=== PATIENT | male | born 1930 | race Caucasian/White ===

== ENCOUNTER 2017-08-04 23:26 | Emergency (ER) | payer MEDICARE ==
[2017-08-05 01:56] LABS: ADD MAN DIFF? NO
[2017-08-05 01:58] LABS: BASOPHILS % 0.8 % (0.0-2.0); EOSINOPHILS # 0.4 10^3/ul (0.0-0.5); HEMOGLOBIN 11.9 g/dl (14.0-18.0); LYMPHOCYTES # 1.6 10^3/ul (0.8-2.9); LYMPHOCYTES % 29.8 % (15.0-51.0); MEAN CORPUSCULAR VOLUME 97.1 fl (82.0-101.0); MEAN PLATELET VOLUME 10.7 fl (7.4-10.4); MONOCYTE # 0.4 10^3/ul (0.3-0.9); MONOCYTES % 8.3 % (0.0-11.0); NEUTROPHIL # 2.9 10^3/ul (1.6-7.5); NEUTROPHILS % 53.9 % (39.0-77.0); PLATELET COUNT 141 10^3/UL (140-415); RED CELL DISTRIBUTION WIDTH 12.2 % (11.5-14.5)
[2017-08-05 01:58] LABS: WHITE BLOOD COUNT 5.3 10^3/ul (4.8-10.8)
[2017-08-05 02:30] LABS: LACTIC ACID 1.3 mmol/L (0.5-2.0)
[2017-08-05 02:30] LABS: ALANINE AMINOTRANSFERASE 16 IU/L (13-69); ALBUMIN 3.5 g/dl (3.3-4.9); ALBUMIN/GLOBULIN RATIO 1.02; ALKALINE PHOSPHATASE 88 IU/L (42-121); ANION GAP 13 (8-16); ASPARTATE AMINO TRANSFERASE 21 IU/L (15-46); BILIRUBIN,INDIRECT 0.2 mg/dl (0-1.1); BILIRUBIN,TOTAL 0.2 mg/dl (0.2-1.3); BLOOD UREA NITROGEN 20 mg/dl (7-20); CALCIUM 8.7 mg/dl (8.4-10.2); CARBON DIOXIDE 30 mmol/L (21-31); CHLORIDE 106 mmol/L (97-110); CREATINE KINASE 51 IU/L (23-200); CREATININE 1.01 mg/dl (0.61-1.24); GLUCOSE 106 mg/dl (70-220); POTASSIUM 4.2 mmol/L (3.5-5.1); SODIUM 145 mmol/L (135-144); TOTAL PROTEIN 6.9 g/dl (6.1-8.1)
[2017-08-05 02:32] LABS: INR 2.21; PROTIME 25.1 Sec (11.9-14.9)
[2017-08-05 03:34] LABS: ACETAMINOPHEN < 10.0 ug/ml (10.0-30.0); ETHANOL < 10.0 mg/dl; SALICYLATE < 1.0 mg/dl (5.0-30.0); TROPONIN-I < 0.012 ng/ml (0.00-0.12)
[2017-08-05 03:53] LABS: URINE BLOOD (Dip) POC Trace-intact (NEGATIVE); URINE GLUCOSE (Dip) POC Negative (NEGATIVE); URINE KETONES (Dip) POC Negative (NEGATIVE); URINE LEUKOCYTE EST (Dip) POC Negative (NEGATIVE); URINE NITRITE (Dip) POC Negative (NEGATIVE); URINE TOTAL PROTEIN POC Negative (NEGATIVE)
== END 2017-08-05 05:01 | disposition home or self-care (01) ==
LOC: E/R 23:26
DX: F03.90 Unspecified dementia, unspecified severity, without behavioral disturbance, psychotic disturbance, mood disturbance, and anxiety (principal); R40.2242 Coma scale, best verbal response, confused conversation, at arrival to emergency department; D64.9 Anemia, unspecified; I10 Essential (primary) hypertension; R40.2142 Coma scale, eyes open, spontaneous, at arrival to emergency department; R40.2362 Coma scale, best motor response, obeys commands, at arrival to emergency department; R40.4 Transient alteration of awareness; R07.9 Chest pain, unspecified
CPT/HCPCS: 70450; 70486; 71045; 80053; 80306; 81003; 82550; 83605; 84443; 84484; 85025; 85610; 85730; 87040; 93005; 99285-25

== ENCOUNTER 2017-08-08 20:09 | Inpatient (IN) | payer MEDICARE, MEDICAID ==
[2017-08-08] MEDS: SODIUM CHLORIDE 0.9% 1L BAG IV* ×2 (21:20→22:42)
[2017-08-08 21:28] LABS: ADD MAN DIFF? NO
[2017-08-08 21:33] LABS: WHITE BLOOD COUNT 4.4 10^3/ul (4.8-10.8)
[2017-08-08 21:33] LABS: BASOPHILS % 0.9 % (0.0-2.0); EOSINOPHILS # 0.5 10^3/ul (0.0-0.5); EOSINOPHILS % 10.4 % (0.0-7.0); HEMATOCRIT 34.9 % (42.0-52.0); HEMOGLOBIN 12.1 g/dl (14.0-18.0); LYMPHOCYTES # 1.7 10^3/ul (0.8-2.9); LYMPHOCYTES % 37.3 % (15.0-51.0); MEAN CORPUSCULAR HEMOGLOBIN 33.8 pg (29.0-33.0); MEAN CORPUSCULAR HGB CONC 34.7 g/dl (32.0-37.0); MEAN CORPUSCULAR VOLUME 97.5 fl (82.0-101.0); MEAN PLATELET VOLUME 11.1 fl (7.4-10.4); MONOCYTE # 0.4 10^3/ul (0.3-0.9); MONOCYTES % 8.4 % (0.0-11.0); NEUTROPHIL # 1.9 10^3/ul (1.6-7.5); NEUTROPHILS % 42.8 % (39.0-77.0); PLATELET COUNT 152 10^3/UL (140-415); RED BLOOD COUNT 3.58 10^6/ul (4.70-6.10); RED CELL DISTRIBUTION WIDTH 12.3 % (11.5-14.5)
[2017-08-08 21:54] LABS: ALANINE AMINOTRANSFERASE 20 IU/L (13-69); ALBUMIN 3.2 g/dl (3.3-4.9); ALBUMIN/GLOBULIN RATIO 0.86; ALKALINE PHOSPHATASE 77 IU/L (42-121); AMYLASE 81 U/L (11-123); ANION GAP 15 (8-16); ASPARTATE AMINO TRANSFERASE 18 IU/L (15-46); BILIRUBIN,INDIRECT 0.2 mg/dl (0-1.1); BILIRUBIN,TOTAL 0.2 mg/dl (0.2-1.3); BLOOD UREA NITROGEN 22 mg/dl (7-20); CALCIUM 8.7 mg/dl (8.4-10.2); CARBON DIOXIDE 23 mmol/L (21-31); CHLORIDE 111 mmol/L (97-110); CREATININE 0.96 mg/dl (0.61-1.24); GLUCOSE 140 mg/dl (70-220); LIPASE 39 U/L (23-300); POTASSIUM 4.3 mmol/L (3.5-5.1); SODIUM 145 mmol/L (135-144); TOTAL PROTEIN 6.9 g/dl (6.1-8.1)
[2017-08-08 21:59] LABS: PROTIME 32.9 Sec (11.9-14.9); PT RATIO 2.6
[2017-08-08 22:00] LABS: PARTIAL THROMBOPLASTIN TIME 49.3 Sec (25.0-35.0)
[2017-08-08 22:04] LABS: B-TYPE NATRIURETIC PEPTIDE 396 PG/ML (0-450)
[2017-08-08 22:10] LABS: TROPONIN-I < 0.012 ng/ml (0.00-0.12)
[2017-08-08] MEDS: CEFEPIME 2GM/50 ML (PMX) 50 ML IVPB (22:42)
[2017-08-08] MEDS: LORAZEPAM 2 MG INJ IV (22:42)
[2017-08-08] MEDS ORDERED: ONDANSETRON 4 MG INJ IV (23:00)
[2017-08-08] MEDS ORDERED: ACETAMINOPHEN 325 MG TAB PO (23:00)
[2017-08-08] MEDS: VANCOMYCIN 1 GM (PMX) 250 ML IVPB (23:16)
[2017-08-09 04:44] LABS: LACTIC ACID 1.2 mmol/L (0.5-2.0)
[2017-08-09] MEDS ORDERED: NACL 0.9% 3 ML SYG IV (05:00)
[2017-08-09] MEDS ORDERED: ONDANSETRON 4 MG INJ IV (05:00)
[2017-08-09] MEDS ORDERED: morphine 2 MG INJ IV (05:00)
[2017-08-09] MEDS ORDERED: ACETAMINOPHEN 325 MG TAB PO (05:00)
[2017-08-09 05:34] LABS: ADD MAN DIFF? NO
[2017-08-09 05:36] LABS: WHITE BLOOD COUNT 4.2 10^3/ul (4.8-10.8)
[2017-08-09 05:36] LABS: BASOPHILS % 0.7 % (0.0-2.0); EOSINOPHILS # 0.5 10^3/ul (0.0-0.5); EOSINOPHILS % 11.9 % (0.0-7.0); HEMATOCRIT 32.8 % (42.0-52.0); HEMOGLOBIN 11.6 g/dl (14.0-18.0); LYMPHOCYTES # 1.7 10^3/ul (0.8-2.9); LYMPHOCYTES % 40.7 % (15.0-51.0); MEAN CORPUSCULAR HEMOGLOBIN 33.9 pg (29.0-33.0); MEAN CORPUSCULAR HGB CONC 35.4 g/dl (32.0-37.0); MEAN CORPUSCULAR VOLUME 95.9 fl (82.0-101.0); MONOCYTE # 0.4 10^3/ul (0.3-0.9); MONOCYTES % 9.3 % (0.0-11.0); NEUTROPHIL # 1.6 10^3/ul (1.6-7.5); NEUTROPHILS % 37.2 % (39.0-77.0); PLATELET COUNT 142 10^3/UL (140-415); RED BLOOD COUNT 3.42 10^6/ul (4.70-6.10); RED CELL DISTRIBUTION WIDTH 11.9 % (11.5-14.5)
[2017-08-09 06:00] LABS: ALANINE AMINOTRANSFERASE 20 IU/L (13-69); ALBUMIN 3.3 g/dl (3.3-4.9); ALKALINE PHOSPHATASE 83 IU/L (42-121); ANION GAP 13 (8-16); ASPARTATE AMINO TRANSFERASE 18 IU/L (15-46); BILIRUBIN,INDIRECT 0.1 mg/dl (0-1.1); BILIRUBIN,TOTAL 0.1 mg/dl (0.2-1.3); BLOOD UREA NITROGEN 18 mg/dl (7-20); CALCIUM 8.7 mg/dl (8.4-10.2); CARBON DIOXIDE 28 mmol/L (21-31); CHLORIDE 111 mmol/L (97-110); CREATININE 0.85 mg/dl (0.61-1.24); GLUCOSE 90 mg/dl (70-220); MAGNESIUM 1.8 mg/dl (1.7-2.5); PHOSPHORUS 2.5 mg/dl (2.5-4.9); POTASSIUM 3.9 mmol/L (3.5-5.1); SODIUM 148 mmol/L (135-144); TOTAL PROTEIN 6.6 g/dl (6.1-8.1)
[2017-08-09 07:07] LABS: INR 3.06; PROTIME 32.5 Sec (11.9-14.9); PT RATIO 2.5
[2017-08-09] MEDS: LEVOFLOXACIN 500MG/D5W (PMX) 100 ML IVPB (09:42)
[2017-08-09] MEDS: ENOXAPARIN 40 MG/0.4 ML SYG SC (09:42)
[2017-08-09] MEDS: ALBUTEROL/IPRATROPIUM (NEB) 3 ML AMP HHN ×2 (16:03→21:49)
[2017-08-09] MEDS ORDERED: WARFARIN 5 MG TAB PO ×2 (17:00→18:30)
[2017-08-09] MEDS ORDERED: LEVALBUTEROL (HFA) 15 GM INHALER INH (18:30)
[2017-08-09 18:55] LABS: FREE T4 (FREE THYROXINE) 1.58 ng/dl (0.85-1.93)
[2017-08-09 19:55] LABS: T4 (THYROXINE) 7.3 ug/dl (5.5-11.0)
[2017-08-09] MEDS: RAMELTEON PO (21:00)
[2017-08-09] MEDS: TAMSULOSIN (SR) 0.4 MG CAP PO (21:28)
[2017-08-09] MEDS: LATANOPROST 0.005% 2.5 ML OPH BOTH EYES (21:28)
[2017-08-09] MEDS: DOCUSATE SODIUM 100 MG CAP PO (21:29)
[2017-08-09] MEDS: LORAZEPAM 1 MG TAB PO (21:31)
[2017-08-10] MEDS ORDERED: LEVOTHYROXINE 100 MCG VIAL IV (06:00)
[2017-08-10] MEDS: LEVOTHYROXINE 25 MCG TAB PO (06:35)
[2017-08-10] MEDS: ALBUTEROL/IPRATROPIUM (NEB) 3 ML AMP HHN ×3 (08:33→19:51)
[2017-08-10 08:53] LABS: ADD MAN DIFF? NO
[2017-08-10] MEDS: PANTOPRAZOLE (EC) 40 MG TAB PO ×2 (08:59→22:03)
[2017-08-10] MEDS ORDERED: LEVOFLOXACIN 250MG/D5W (PMX) 50 ML IVPB (09:00)
[2017-08-10 09:01] LABS: BASOPHILS % 0.9 % (0.0-2.0); EOSINOPHILS # 0.4 10^3/ul (0.0-0.5); EOSINOPHILS % 9.5 % (0.0-7.0); HEMATOCRIT 33.2 % (42.0-52.0); HEMOGLOBIN 11.9 g/dl (14.0-18.0); LYMPHOCYTES # 1.6 10^3/ul (0.8-2.9); LYMPHOCYTES % 36.1 % (15.0-51.0); MEAN CORPUSCULAR HEMOGLOBIN 34.3 pg (29.0-33.0); MEAN CORPUSCULAR HGB CONC 35.8 g/dl (32.0-37.0); MEAN CORPUSCULAR VOLUME 95.7 fl (82.0-101.0); MEAN PLATELET VOLUME 11.1 fl (7.4-10.4); MONOCYTE # 0.4 10^3/ul (0.3-0.9); MONOCYTES % 9.7 % (0.0-11.0); NEUTROPHILS % 43.6 % (39.0-77.0); PLATELET COUNT 139 10^3/UL (140-415); POSITIVE DIFF @See below; RED BLOOD COUNT 3.47 10^6/ul (4.70-6.10); RED CELL DISTRIBUTION WIDTH 12.1 % (11.5-14.5)
[2017-08-10 09:01] LABS: WHITE BLOOD COUNT 4.5 10^3/ul (4.8-10.8)
[2017-08-10] MEDS: MAGNESIUM CITRATE PO (09:01)
[2017-08-10] MEDS: FERROUS SULFATE (EC) 325 MG TAB PO ×2 (09:01→13:29)
[2017-08-10] MEDS: DOCUSATE SODIUM 100 MG CAP PO ×2 (09:01→22:03)
[2017-08-10] MEDS: FUROSEMIDE 20 MG TAB PO ×3 (09:02→13:00)
[2017-08-10] MEDS: FINASTERIDE 5 MG TAB PO (09:02)
[2017-08-10] MEDS: MULTIVITAMINS THERAPEUTIC TAB PO ×2 (09:02→13:29)
[2017-08-10] MEDS: POTASSIUM CHLORIDE (SR) 8 MEQ CAP PO ×2 (09:02→13:29)
[2017-08-10] MEDS: CHOLECALCIFEROL 1,000 UNIT TAB PO ×2 (09:03→13:43)
[2017-08-10] MEDS: CYANOCOBALAMIN 500 MCG TAB PO ×2 (09:03→13:29)
[2017-08-10 09:30] LABS: INR 2.48; PROTIME 27.5 Sec (11.9-14.9); PT RATIO 2.1
[2017-08-10 09:38] LABS: ALANINE AMINOTRANSFERASE 28 IU/L (13-69); ALBUMIN 3.3 g/dl (3.3-4.9); ALBUMIN/GLOBULIN RATIO 1.03; ALKALINE PHOSPHATASE 76 IU/L (42-121); ANION GAP 15 (8-16); ASPARTATE AMINO TRANSFERASE 29 IU/L (15-46); BLOOD UREA NITROGEN 21 mg/dl (7-20); CALCIUM 8.8 mg/dl (8.4-10.2); CARBON DIOXIDE 30 mmol/L (21-31); CHLORIDE 107 mmol/L (97-110); CREATININE 0.96 mg/dl (0.61-1.24); GLUCOSE 94 mg/dl (70-220); MAGNESIUM 1.8 mg/dl (1.7-2.5); PHOSPHORUS 3.5 mg/dl (2.5-4.9); POTASSIUM 3.6 mmol/L (3.5-5.1); SODIUM 148 mmol/L (135-144); TOTAL PROTEIN 6.5 g/dl (6.1-8.1)
[2017-08-10 09:41] LABS: B-TYPE NATRIURETIC PEPTIDE 497 PG/ML (0-450)
[2017-08-10] MEDS ORDERED: SPECIAL NON-STANDARD MEDICATION (BULK) PO (13:00)
[2017-08-10] MEDS ORDERED: POTASSIUM CHLORIDE (SR) 8 MEQ CAP PO (13:00)
[2017-08-10 14:23] LABS: FREE T4 (FREE THYROXINE) 1.36 ng/dl (0.85-1.93)
[2017-08-10] MEDS ORDERED: WARFARIN 5 MG TAB PO ×2 (17:00→21:00)
[2017-08-10] MEDS ORDERED: PANTOPRAZOLE (EC) 40 MG TAB PO (18:00)
[2017-08-10] MEDS: WARFARIN 3 MG TAB PO (22:02)
[2017-08-10] MEDS: LATANOPROST 0.005% 2.5 ML OPH BOTH EYES (22:02)
[2017-08-10] MEDS: TAMSULOSIN (SR) 0.4 MG CAP PO (22:02)
[2017-08-10] MEDS: RAMELTEON PO (22:02)
[2017-08-10] MEDS: LORAZEPAM 1 MG TAB PO (22:03)
[2017-08-11] MEDS: ALBUTEROL/IPRATROPIUM (NEB) 3 ML AMP HHN ×4 (01:46→20:00)
[2017-08-11 04:02] LABS: ADD UMIC NO; UR ASCORBIC ACID 40 mg/dL (NEGATIVE); UR BACTERIA FEW /HPF (NONE SEEN); UR BILIRUBIN (Dip) NEGATIVE (NEGATIVE); UR BLOOD (Dip) NEGATIVE (NEGATIVE); UR CLARITY SLIGHTLY CLOUDY (CLEAR); UR COLOR YELLOW (YELLOW); UR GLUCOSE (Dip) NEGATIVE (NEGATIVE); UR KETONES (Dip) NEGATIVE (NEGATIVE); UR LEUKOCYTE ESTERASE (Dip) NEGATIVE Leu/ul (NEGATIVE); UR MUCUS MODERATE /HPF (NONE SEEN); UR NITRITE (Dip) NEGATIVE (NEGATIVE); UR RBC 0 /HPF (0-5); UR SPECIFIC GRAVITY (Dip) 1.017 (1.003-1.030); UR SQUAMOUS EPITHELIAL CELL FEW /HPF (FEW); UR TOTAL PROTEIN (Dip) NEGATIVE (NEGATIVE); UR UROBILINOGEN (Dip) NEGATIVE (NEGATIVE); UR WBC 3 /HPF (0-5)
[2017-08-11] MEDS: DOCUSATE SODIUM 100 MG CAP PO (08:54)
[2017-08-11] MEDS: LEVOTHYROXINE 25 MCG TAB PO (08:55)
[2017-08-11] MEDS: FINASTERIDE 5 MG TAB PO (08:55)
[2017-08-11] MEDS: PANTOPRAZOLE (EC) 40 MG TAB PO (08:55)
[2017-08-11] MEDS: FUROSEMIDE 20 MG TAB PO (08:56)
[2017-08-11] MEDS ORDERED: WARFARIN 2.5 MG TAB PO (09:00)
[2017-08-11 10:07] LABS: ANION GAP 17 (8-16); BLOOD UREA NITROGEN 19 mg/dl (7-20); CARBON DIOXIDE 26 mmol/L (21-31); CHLORIDE 108 mmol/L (97-110); CREATININE 0.87 mg/dl (0.61-1.24); GLUCOSE 104 mg/dl (70-220); MAGNESIUM 1.8 mg/dl (1.7-2.5); PHOSPHORUS 2.6 mg/dl (2.5-4.9); POTASSIUM 4.1 mmol/L (3.5-5.1); SODIUM 147 mmol/L (135-144)
[2017-08-11 10:08] LABS: INR 1.75; PROTIME 20.8 Sec (11.9-14.9); PT RATIO 1.6
[2017-08-11] MEDS: CYANOCOBALAMIN 500 MCG TAB PO (13:00)
[2017-08-11] MEDS: CHOLECALCIFEROL 1,000 UNIT TAB PO (13:00)
[2017-08-11] MEDS: FERROUS SULFATE (EC) 325 MG TAB PO (13:00)
[2017-08-11] MEDS: POTASSIUM CHLORIDE 20 MEQ POWDER FOR ORAL SOLN PO (13:00)
[2017-08-11] MEDS: MULTIVITAMINS THERAPEUTIC TAB PO (13:00)
[2017-08-11] MEDS: WARFARIN 3 MG TAB PO (17:57)
== END 2017-08-11 19:42 | disposition home or self-care (01) | DRG 178 ==
LOC: E/R 20:09 → MS4 22:52
DX: J69.0 Pneumonitis due to inhalation of food and vomit (principal); E87.2 Acidosis; E87.0 Hyperosmolality and hypernatremia; E44.0 Moderate protein-calorie malnutrition; I48.0 Paroxysmal atrial fibrillation; R13.10 Dysphagia, unspecified; R00.1 Bradycardia, unspecified; G30.9 Alzheimer's disease, unspecified; I10 Essential (primary) hypertension; R62.7 Adult failure to thrive; F02.80 Dementia in other diseases classified elsewhere, unspecified severity, without behavioral disturbance, psychotic disturbance, mood disturbance, and anxiety; E86.0 Dehydration; E03.9 Hypothyroidism, unspecified; Z68.24 Body mass index [BMI] 24.0-24.9, adult; Z79.01 Long term (current) use of anticoagulants; Z86.711 Personal history of pulmonary embolism
CPT/HCPCS: 71045; 80048; 80053; 81001; 81003; 82150; 83605; 83690; 83735; 83880; 84100; 84436; 84439; 84443; 84484; 85025; 85610; 85730; 87040; 87400; 92610; 93005; 93306; 94640; 94664; 96372; 96374; 96375; 97110; 97116; 97162; 97530; 99285-25

== ENCOUNTER → 2018-02-25 | Outpatient (CLI) | payer MEDICARE, OTHER ==
[2018-02-25 18:08] LABS: INR 2.11; PROTIME 24.2 Sec (11.9-14.9); PT RATIO 1.9
[2018-02-25 18:09] LABS: PARTIAL THROMBOPLASTIN TIME 49.8 Sec (23.0-35.0)
[2018-02-25 18:51] LABS: D-DIMER 1574.93 ng/ml (<460)
== END | disposition home or self-care (01) ==
LOC: LAB 17:16
DX: I82.509 Chronic embolism and thrombosis of unspecified deep veins of unspecified lower extremity (principal)
CPT/HCPCS: 85378; 85610; 85730